=== PATIENT | male | born 1950 | race Caucasian/White ===

== ENCOUNTER 2016-05-19 18:29 | Emergency (ER) | payer BC, OTHER ==
[2016-05-19 18:50] VITALS: BP 153/85; PULSE 59; TEMP 98.1; BMI 25.1
--- NOTE | 2016-05-19 20:11 | PDOC ---
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 The patient reports a trip and fall landing on carpet on his head. The patient reports as a result injuring his head and now has a laceration on his head. Denies any LOC. He ranks his pain a 2/10 in pain intensity. He denies chest pain and shortness of breath. He denies fever, chills, headache and dizziness. He denies nausea, vomit, diarrhea and constipation. He denies dysuria, frequency, urgency and hematuria. Allergies: NKA Surgical history: Bilateral TKR Social History: denies tobacco, EtOH, and drug use. <Juan Jose Roy - Last Filed: 05/19/16 20:11> <Marilu Stockton - Last Filed: 05/20/16 02:02> - General Chief Complaint: Laceration Stated Complaint: FALL Time Seen by Provider: 05/19/16 19:13 Past History <Juan Jose Roy - Last Filed: 05/19/16 20:11> - Past Medical History Other medical history: MS / FACTOR 5 - Psycho/Social/Smoking Cessation Hx Anxiety: No Suicidal Ideation: No Smoking History: Never smoked Information on smoking cessation initiated: No Drug/Substance Use Hx: No Substance Use Type: None <Marilu Stockton - Last Filed: 05/20/16 02:02> - Past Medical History Allergies/Adverse Reactions: Allergies Allergy/AdvReac Type Severity Reaction Status Date / Time No Known Allergies Allergy Unverified 05/19/16 18:32 Home Medications: Ambulatory Orders Dalfampridine [Ampyra] 10 mg PO BID 03/18/14 Interferon Beta-1A [Avonex] 30 mcg IM WEEKLY 03/18/14 Review of Systems - Review of Systems All Other Systems: Reviewed and Negative <Juan Jose Roy - Last Filed: 05/19/16 20:11> *Physical Exam - Vital Signs Last Vital Signs Temp Pulse Resp BP Pulse Ox 98.1 F 59 L 16 153/85 16 L 05/19/16 18:45 05/19/16 18:45 05/19/16 18:45 05/19/16 18:45 05/19/16 18:45 - Physical Exam Comments: 05/19/16 20:11 GENERAL: The patient is awake, alert, and fully oriented, in no acute distress. HEAD: 1.5 cm full thickness laceration of the lateral aspect of the right eyebrow. Minimal tenderness and abrasion of the right zygoma. No deformity and no ecchymosis. EYES: Pupils equal, round and reactive to light, extraocular movements intact, sclera anicteric, conjunctiva clear with no pallor. ENT: Ears normal, nares patent, oropharynx clear without exudates. Moist mucous membranes. NECK: Normal range of motion, supple without lymphadenopathy, JVD, or masses. LUNGS: Breath sounds equal, clear to auscultation bilaterally. No wheeze/ crackles. HEART: Regular rate and rhythm, normal S1 and S2 without murmur or rub. ABDOMEN: Soft/nontender/nondistended. BS wnl. No guarding or rebound. No palpable masses. No hepatosplenomegaly. EXTREMITIES: Normal range of motion, no edema. No clubbing or cyanosis. No cords , erythema, or tenderness. NEUROLOGICAL: Cranial nerves II through XII grossly intact. Normal speech, normal gait. PSYCH: Normal mood, normal affect. SKIN: Warm, Dry, normal turgor, no rashes or lesions noted. <Juan Jose Roy - Last Filed: 05/19/16 20:11> - Vital Signs Last Vital Signs Temp Pulse Resp BP Pulse Ox 98.1 F 59 L 16 153/85 16 L 05/19/16 18:45 05/19/16 18:45 05/19/16 18:45 05/19/16 18:45 05/19/16 18:45 <Marilu Stockton - Last Filed: 05/20/16 02:02> Procedures - Laceration/Wound Repair Right Lateral Eye Wound Length: to 2.5 cm Wound Explored: clean Wound's Depth, Shape: irregular Irrigated w/ Saline: Yes Betadine Prep: No (Hibiclens/ethanol) Anesthesia: 1% Lidocaine Amount of Anesthetic (ccs): 1 Wound Repaired With: Sutures Suture Size/Type: 4:0 Number of Sutures: 3 Layer Closure: No Sterile Dressing Applied: No Splint Applied: No Progress: 1.5 cm full-thickness, irregular laceration of the right lateral eyebrow cleansed using Hibiclens/ethanol and sterilely draped. One mL of 1% lidocaine infiltrated into the wound for local anesthesia. Wound irrigated with 50 mL of sterile normal saline. No evidence of foreign body noted in wound. Wound closed with 3 interrupted Sutures of 4-0 nylon. Bacitracin applied to surface of the sutured wound. Bacitracin ointment also applied to abrasions and superficial laceration of the right zygoma The patient tolerated procedure well <Marilu Stockton - Last Filed: 05/20/16 02:02> ED Treatment Course - RADIOLOGY Radiograph Interpretation: 05/19/16 20:[address] WITHOUT CONTRAST impressions reported by : No evidence of acute intracranial pathology. <Juan Jose Roy - Last Filed: 05/19/16 20:11> - RADIOLOGY Radiology Studies Ordered: Category Date Time Status HEAD CT WITHOUT CONTRAST [CT] Stat CT Scan 05/19/16 18:51 Completed <Marilu Stockton - Last Filed: 05/20/16 02:02> Progress Note - Progress Note Progress Note: Documentation has been prepared under my direction and personally reviewed by me in its entirety. I attest that this documented accurately reflects all work, treatment, procedures and medical decision making performed by me. <Marilu Stockton - Last Filed: 05/20/16 02:02> Medical Decision Making - Medical Decision Making As noted above, this 66-year-old man with a history of multiple sclerosis presents with mechanical fall that occurred in his home just prior to presentation. Patient stated that ambulation is poor secondary to the EMS and he tripped as he was walking inside his home. He struck the right upper portion of his face, sustaining a laceration of the right eyebrow and contusion of his right cheekbone.. Exam reveals no evidence of focal neurologic deficits or other acute abnormalities. Because patient is taking anticoagulation medications, noncontrast head CT was performed to evaluate for intracranial pathology. <Marilu Stockton - Last Filed: 05/20/16 02:02> *DC/Admit/Observation/Transfer - Attestations Scribe Attestion: 05/19/16 20:11 Documentation prepared by Juan Jose Roy, acting as medical library assistant for Marilu Stockton MD. <Juan Jose Roy - Last Filed: 05/19/16 20:11> <Marilu Stockton - Last Filed: 05/20/16 02:02> Diagnosis at time of Disposition: Laceration of eyebrow Qualifiers: Encounter type: initial encounter Laterality: right Qualified Code(s): S01.111A - Laceration without foreign body of right eyelid and periocular area, initial encounter Facial abrasion Qualifiers: Encounter type: initial encounter Qualified Code(s): S00.81XA - Abrasion of other part of head, initial encounter Closed head injury Qualifiers: Encounter type: initial encounter Qualified Code(s): S09.90XA - Unspecified injury of head, initial encounter - Discharge Dispostion Disposition: HOME Condition at time of disposition: Stable - Patient Instructions Printed Discharge Instructions: DI for Closed Head Injury, How to Care for a Laceration After Repair Additional Instructions: Keep head elevated on extra pillow tonight Bacitracin/Neosporin to abrasion/laceration twice daily until sutures removed Tylenol as needed for pain Return if you have severe headache or experience vomiting/lightheadedness Keep stitched area as dry as possible for 2 days, then can wet briefly Sutures should be removed on Monday, May 25
== END 2016-05-19 20:17 | disposition home or self-care (01) ==
LOC: FER 18:29
PROC: 0HQ1XZZ Repair Face Skin, External Approach (ICD-10-PCS; principal; 2016-05-19)
DX: S01.111A Laceration without foreign body of right eyelid and periocular area, initial encounter (principal); S00.211A Abrasion of right eyelid and periocular area, initial encounter; S09.90XA Unspecified injury of head, initial encounter; W18.39XA Other fall on same level, initial encounter; Y93.9 Activity, unspecified; Y92.009 Unspecified place in unspecified non-institutional (private) residence as the place of occurrence of the external cause; G35 Multiple sclerosis; I10 Essential (primary) hypertension; D68.51 Activated protein C resistance; Z79.01 Long term (current) use of anticoagulants
CPT/HCPCS: 70450-TC; 99282-25

== ENCOUNTER 2016-05-28 12:42 | Emergency (ER) | payer BC, OTHER ==
--- NOTE | 2016-05-28 12:50 | PDOC ---
History of Present Illness - General Chief Complaint: Suture/Staple Removal(Here) Stated Complaint: SUTURE REMOVAL Time Seen by Provider: 05/28/16 12:46 History Source: Patient Exam Limitations: No Limitations - History of Present Illness Initial Comments: 05/28/16 12:46 The patient is a 66 year old male who presents for suture removal. Sutures located above left eye. No visual complaints. No headaches, focal weakness or paresthesias, nausea/vomiting. He states that the wound is healing well, is not painful or tender. He denies fever, rash, discharge, re-injury. 05/28/16 13:13 Past History - Past Medical History Allergies/Adverse Reactions: Allergies Allergy/AdvReac Type Severity Reaction Status Date / Time No Known Allergies Allergy Verified 05/25/16 13:18 Home Medications: Ambulatory Orders Dalfampridine [Ampyra] 10 mg PO BID 03/18/14 Interferon Beta-1A [Avonex] 30 mcg IM WEEKLY 03/18/14 - Psycho/Social/Smoking Cessation Hx Anxiety: No Suicidal Ideation: No Smoking History: Never smoked Drug/Substance Use Hx: No Substance Use Type: None Review of Systems - Review of Systems Comments:: 05/28/16 12:47 CONSTITUTIONAL: Absent: fever, chills, fatigue MUSKULOSKELETAL: Absent: back pain, arthralgia, myalgia SKIN: Present: well healing laceration Absent: rash NEURO: Absent: headache, dizziness, focal weakness/paresthesias *Physical Exam - Physical Exam Comments: 05/28/16 12:48 GENERAL: Well-appearing, well-nourished. No apparent distress. CARDIOVASCULAR: Normal S1, S2. Regular rate and rhythm. EXTREMITIES: Normal ROM in all four extremities. No gross deformities. SKIN: Well healed laceration, without tenderness, discharge. Edges well approximated. Warm, dry. No rash NEUROLOGICAL: No focal neurological deficits. Medical Decision Making - Medical Decision Making 05/28/16 12:49 The patient is well appearing and no acute distress Would well healed Sutures removed *DC/Admit/Observation/Transfer Diagnosis at time of Disposition: Visit for suture removal - Discharge Dispostion Condition at time of disposition: Good - Referrals Referrals: Tod Ghotra MD [Primary Care Provider] - - Patient Instructions Printed Discharge Instructions: DI for Suture Removal Additional Instructions: Return to the emergency department immediately with ANY new, persistent or worsening symptoms. You MUST call and follow up with your doctor tomorrow. Please make sure your doctor reviews the results of your emergency department evaluation.
[2016-05-28 12:55] VITALS: BP 136/79; PULSE 70; TEMP 98.2; BMI 25.0
== END 2016-05-28 12:57 | disposition home or self-care (01) ==
LOC: FER 12:42 → SUPCPDRO 12:42 → FER 12:57
DX: Z48.02 Encounter for removal of sutures (principal)
CPT/HCPCS: 99281-25

== ENCOUNTER 2017-10-18 11:28 | Emergency (ER) | payer OTHER ==
--- NOTE | 2017-10-18 11:40 | PDOC ---
History of Present Illness - General Chief Complaint: Pain Stated Complaint: LEFT HIP INJURY Time Seen by Provider: 10/18/17 11:40 - History of Present Illness Initial Comments: 10/18/17 11:56 Plan: Left hip pain History of present illness: Patient complains of pain over the greater trochanter of the left hip after an injury yesterday. He was walking down stairs , lost his balance, and shifted his entire weight onto his left leg to maintain his balance. He did not fall. He has pain and stiffness today with increased difficulty ambulating. He has had numerous falls due to knee problems and knee surgery, though he did not fall this time. Review of systems: As noted above, denies fall, pain or injury to the head neck chest abdomen or spine. Denies injuries to the extremities. Denies distal numbness tingling pain or weakness since the injury. However, requires the assistance of a walker since the injury. 10/18/17 13:26 Past medical history: Numerous surgeries including knee replacements contributing to gait instability. Otherwise noncontributory Social/family history reviewed and noncontributory to this injury Physical exam: Alert, no acute distress at rest, no pain at rest. Pain with weightbearing left lateral hip. However adequately ambulating with the aid of a walker Afebrile, vital signs normal LS spine, pelvis, and left hip: No deformity, swelling, bruising or ecchymosis, or warmth. No spine tenderness. No pelvic tenderness. Hip range of motion is intact with internal and external rotation, no aggravation of pain. Abrasions without sign of infection on both legs, results of a prior fall. Pulses full. No distal sensory or motor deficits. Impression: Since there was no fall, primarily a jarring injury, probably muscle strain, rule out fracture Plan: X-ray and further orthopedic management depending on results Past History - Past Medical History Allergies/Adverse Reactions: Allergies Allergy/AdvReac Type Severity Reaction Status Date / Time No Known Allergies Allergy Verified 10/18/17 11:38 Home Medications: Ambulatory Orders Dalfampridine [Ampyra] 10 mg PO BID 03/18/14 Interferon Beta-1A [Avonex] 30 mcg IM WEEKLY 03/18/14 Tamsulosin HCl 0.4 mg PO DAILY 10/18/17 - Suicide/Smoking/Psychosocial Hx Smoking History: Never smoked Hx Alcohol Use: No Drug/Substance Use Hx: No Substance Use Type: None Medical Decision Making - Medical Decision Making 10/18/17 13:29 X-ray is negative. No obvious fracture is noted to the pelvis or hip. Since this is a recent injury, rest and medication as needed. Consider further imaging if pain persists. This was discussed with the patient and his family and they will follow up as directed. Fully ambulatory with walker upon discharge in no severe pain to follow-up as directed *DC/Admit/Observation/Transfer Diagnosis at time of Disposition: Hip sprain Qualifiers: Encounter type: initial encounter Laterality: left Qualified Code(s): S73.102A - Unspecified sprain of left hip, initial encounter - Discharge Dispostion Disposition: HOME Condition at time of disposition: Stable Decision to Admit order: No - Referrals Referrals: Raman Murillo MD [Staff Physician] - 1 week - Patient Instructions Printed Discharge Instructions: Help for Hip Pain Additional Instructions: Rest, ice or heat, pain medication as needed. If pain persists. 5 days, see primary physician or natural resources specialist for further evaluation and treatment. X-ray today shows no sign of fracture, however, it is possible to have a minor injury that does not show up on x-ray and if pain persists further evaluation will be needed. - Post Discharge Activity
[2017-10-18 12:02] VITALS: BP 144/78; PULSE 57; TEMP 97.7; BMI 25.8
== END 2017-10-18 13:18 | disposition home or self-care (01) ==
LOC: FER 11:28
DX: S73.102A Unspecified sprain of left hip, initial encounter (principal); X58.XXXA Exposure to other specified factors, initial encounter; Y93.89 Activity, other specified; Y92.9 Unspecified place or not applicable
CPT/HCPCS: 73523-TC-FY; 99282-25

== ENCOUNTER 2018-07-28 23:43 | Emergency (ER) | payer OTHER ==
[2018-07-28 23:55] VITALS: BP 152/84; PULSE 61; TEMP 97.8; BMI 25.8
--- NOTE | 2018-07-28 23:56 | PDOC ---
History of Present Illness - General Chief Complaint: Injury Stated Complaint: FALL Time Seen by Provider: 07/28/18 23:47 History Source: Patient Exam Limitations: No Limitations - History of Present Illness Initial Comments: 07/28/18 23:54 This is a 68-year-old male brought in by his children for evaluation status post fall. Patient has a history significant for multiple sclerosis so has difficulty ambulating and with his gait. Patient does use a walker for ambulation. Patient was outside this evening when he lost his balance and fell landing on his left side. Patient is complaining of some pain in the area of his left side anteriorly. Patient said it hurts when he takes a deep breath. 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 Patient otherwise denies any neck pain, low back pain pain in the area of his lumbar or thoracic spine, extremity pain or any other injury. Patient said he did not hit his head or passed out. Allergies: None Past Medical History: none Social history: Lives with family. No smoking. No alcohol. No illicit drugs. Surgical history: None General: No fevers or chills, no weakness, no weight loss HEENT: No change in vision. No sore throat,. No ear pain CardioVascular: no chest discomfort. No shortness of breath Respiratory:No cough, or wheezing. Gastrointestinal: no nausea, vomiting, diarrhea or constipation, No rectal bleeding Genitourinary: No dysuria, hematuria, or frequency Musculoskeletal: No joint or muscle pain or swelling Neurologic: No headache, vertigo, dizziness or loss of consciousness Psychiatric: nor depression Skin: No rashes or easy bruising Endocrine: no increased thirst or abnormal weight change Allergic: no skin or latex allergy All other systems reviewed and normal Exam: General: Well-nourished well-developed individual, no acute distress HEENT: Throat: Normal, tonsils normal, no erythema or exudate Neck: Supple, no meningeal signs, no lymphadenopathy Eyes::Pupils equal reactive and round, extraocular motion intact Chest: Nontender to palpation, there is no bony tenderness other ribs anteriorly or posteriorly. There is no visible ecchymosis or contusions. Cardiac: S1-S2 normal, regular rate and rhythm, no murmurs rubs or gallops Respiratory: Lungs clear to auscultation bilateral, with good air entry Abdomen: Soft, nondistended, normal bowel sounds, there is no tenderness on palpation diffusely Extremities: Warm, dry, no cyanosis, clubbing, or edema Skin: No rashes Neuro: Alert and oriented x3, CN II - XII intact, nonfocal exam is intact. Psych: Normal mood and affect Assessment and plan: This is a 68-year-old male comes in complaining of status post fall. Patient does appear to have some sealer type discomfort however there is no bony tenderness on palpation of his ribs and extremities. There is no evidence of head trauma. Patient discharged home without any further workup. 07/29/18 00:01 Past History - Past Medical History Allergies/Adverse Reactions: Allergies Allergy/AdvReac Type Severity Reaction Status Date / Time No Known Allergies Allergy Verified 10/18/17 11:38 Home Medications: Ambulatory Orders Dalfampridine [Ampyra] 10 mg PO BID 03/18/14 Interferon Beta-1A [Avonex] 30 mcg IM WEEKLY 03/18/14 Tamsulosin HCl 0.4 mg PO DAILY 10/18/17 COPD: No - Suicide/Smoking/Psychosocial Hx Smoking History: Never smoked Have you smoked in the past 12 months: Yes If you are a former smoker, when did you quit?: 10 YEARS Hx Alcohol Use: No Drug/Substance Use Hx: No Substance Use Type: None *DC/Admit/Observation/Transfer Diagnosis at time of Disposition: Fall Qualifiers: Encounter type: initial encounter Qualified Code(s): W19.XXXA - Unspecified fall, initial encounter - Discharge Dispostion Disposition: HOME Condition at time of disposition: Stable Decision to Admit order: No - Referrals - Patient Instructions Additional Instructions: U can take Tylenol as needed for the pain. Return to the emergency department immediately with ANY new, persistent or worsening symptoms. Continue any medications as previously prescribed by your physician. You should follow up with your primary doctor as soon as possible regarding today's emergency department visit. . Please make sure your doctor reviews the results of your emergency evaluation. Thank you for coming to the Emergency Department today for your care. It was a pleasure to see you today. Please note that your evaluation is INCOMPLETE until you follow-up with your doctor. - Post Discharge Activity
== END 2018-07-29 00:30 | disposition home or self-care (01) ==
LOC: FER 23:43
DX: Z04.3 Encounter for examination and observation following other accident (principal); R07.89 Other chest pain; G35 Multiple sclerosis; Z99.89 Dependence on other enabling machines and devices
CPT/HCPCS: 99281-25

== ENCOUNTER 2020-06-11 19:43 | Inpatient (IN) | payer OTHER ==
[2020-06-11 19:55] VITALS: BMI 23.6
[2020-06-11] MEDS ORDERED: ACETAMINOPHEN INJECTION 100 ML IVPB ONE (20:22)
[2020-06-11] MEDS ORDERED: PIPERACILLIN/TAZOB 4.5 GM 4.5 GM in DEXTROSE 5%-WATER 100 ML IVPB ONE (20:26)
[2020-06-11] MEDS ORDERED: ACETAMINOPHEN 1000 MG/100 ML VIAL (NON FORMULARY) IVPB ONE (20:26)
[2020-06-11] MEDS ORDERED: PIPERACILLIN/TAZOB 4.5 GM 4.5 GM/100 ML BAG IVPB ONE (20:32)
[2020-06-11 20:53] LABS: BASO % 0.1 % (0-2.0); HEMATOCRIT 36.9 % (35.4-49); HEMOGLOBIN 12.4 GM/dL (11.7-16.9); LYMPH % 2.3 % (8-40); MCH 29.9 pg (25.7-33.7); MCHC 33.7 g/dl (32.0-35.9); MEAN CELL VOLUME 88.9 fl (80-96); MEAN PLT VOLUME 6.5 fl (7.5-11.1); MONO % 2.4 % (3.8-10.2); NEUT % 95.2 % (42.8-82.8); PLATELET COUNT 211 K/MM3 (134-434); RBC 4.15 M/mm3 (4.00-5.60); RDW 13.5 % (11.9-15.9); VENOUS BASE EXCESS 2.8 mmol/L (-2-2); VENOUS O2 SATURATION 37.8 % (70-80); VENOUS PCO2 49.9 mmHg (38-52); VENOUS PH 7.38 (7.310-7.410); WHITE BLOOD COUNT 6.9 K/mm3 (4.0-10.0)
[2020-06-11] MEDS ORDERED: LACTATED RINGERS SOLUTION 1000 ML INFUS.BAG IV ONE (20:58)
[2020-06-11] MEDS ORDERED: VANCOMYCIN 1 GM in D5W (PRE-DOCKED) 1,000 MG/250 ML IVPB ONE (20:58)
[2020-06-11] MEDS ORDERED: LORazepam 2 MG/ML SDV VIAL IVPUSH ONE ×2 (21:06→22:00)
[2020-06-11] MEDS ORDERED: LORazepam 2 MG/ML SDV VIAL ONE ×2 (21:08→21:29)
[2020-06-11 21:15] LABS: POTASSIUM 4.1 mmol/L (3.5-5.1)
[2020-06-11 21:16] LABS: CALCIUM 8.7 mg/dL (8.5-10.1)
[2020-06-11 21:17] LABS: ALBUMIN 3.3 g/dl (3.4-5.0); BLOOD UREA NITROGEN 19.6 mg/dL (7-18)
[2020-06-11 21:18] LABS: PROTHROMBIN TIME (PATIENT) 62.1 SEC (9.7-13.0)
[2020-06-11 21:20] LABS: CREATININE 0.8 mg/dL (0.55-1.3)
[2020-06-11 21:21] LABS: ACTIVATED PTT 43.4 SECONDS (25.2-36.5)
[2020-06-11 21:22] LABS: BILIRUBIN,TOTAL 0.7 mg/dL (0.2-1); TOT PROT 6.5 g/dl (6.4-8.2)
[2020-06-11 21:26] LABS: INR 5.3 (0.83-1.09)
[2020-06-11] MEDS ORDERED: METOCLOPRAMIDE HCL INJECTION 10 MG/2 ML VIAL ONE (21:29)
[2020-06-11 21:35] LABS: EPI CELLS 5 /uL (0-25.1); HYALINE CASTS 0 /uL (0-3.1); URINE APPEARANCE CLOUDY; URINE BACTERIA 23 /uL (0-1359); URINE BILIRUBIN NEGATIVE (NEGATIVE); URINE COLOR YELLOW; URINE GLUCOSE (UA) NEGATIVE (NEGATIVE); URINE KETONE TRACE (NEGATIVE); URINE LEUK ESTERASE NEGATIVE (NEGATIVE); URINE NITRITE NEGATIVE (NEGATIVE); URINE PROTEIN 2+ (NEGATIVE); URINE RBC 4596 /uL (0-23.9); URINE UROBILINOGEN 0.2 mg/dL (0.2-1.0); URINE WBC 17 /uL (0-25.8)
[2020-06-11] MEDS ORDERED: METOCLOPRAMIDE HCL INJECTION 10 MG/2 ML VIAL IVPUSH ONE (22:00)
[2020-06-11] MEDS ORDERED: VANCOMYCIN 1 GRAM (PRE-DOCKED) 1,000 MG/250 ML BAG IVPB ONE (22:00)
[2020-06-11 22:06] LABS: ANISOCYTOSIS 0; MACROCYTOSIS 0; PLATELET ESTIMATE NORMAL
[2020-06-11] MEDS ORDERED: SODIUM CHLORIDE 0.9% 500 ML INFUS.BAG IV ONE (23:16)
[2020-06-12] MEDS ORDERED: PIPERACILLIN/TAZOB 3.375 GM 3.375 GM/50 ML BAG IVPB ONE (03:06)
[2020-06-12] MEDS ORDERED: VANCOMYCIN 1,000 MG in DEXTROSE 5%-WATER - 250 ML IVPB SCH ×2 (03:15→10:00)
[2020-06-12] MEDS: SODIUM CHLORIDE 1,000 ML IV SCH (03:28)
[2020-06-12] MEDS: PIPERACILLIN/TAZOB 3.375 GM 3.375 GM in DEXTROSE 5%-WATER - 50 ML IVPB SCH ×2 (03:28→12:56)
[2020-06-12 05:02] LABS: EPI CELLS 11 /uL (0-25.1); HYALINE CASTS 1 /uL (0-3.1); PH,URINE 6.5 (5.0-8.0); URINE APPEARANCE CLEAR; URINE BACTERIA 31 /uL (0-1359); URINE BILIRUBIN NEGATIVE (NEGATIVE); URINE COLOR YELLOW; URINE GLUCOSE (UA) NEGATIVE (NEGATIVE); URINE KETONE NEGATIVE (NEGATIVE); URINE LEUK ESTERASE NEGATIVE (NEGATIVE); URINE NITRITE NEGATIVE (NEGATIVE); URINE PROTEIN NEGATIVE (NEGATIVE); URINE RBC 88 /uL (0-23.9); URINE UROBILINOGEN 0.2 mg/dL (0.2-1.0); URINE WBC 7 /uL (0-25.8)
[2020-06-12 06:42] LABS: POTASSIUM 3.9 mmol/L (3.5-5.1)
[2020-06-12 06:44] LABS: BASO % 0.1 % (0-2.0); HEMATOCRIT 35.3 % (35.4-49); HEMOGLOBIN 12.1 GM/dL (11.7-16.9); MCH 30.1 pg (25.7-33.7); MCHC 34.2 g/dl (32.0-35.9); MEAN CELL VOLUME 88.1 fl (80-96); MEAN PLT VOLUME 6.9 fl (7.5-11.1); MONO % 6.2 % (3.8-10.2); NEUT % 90.7 % (42.8-82.8); PLATELET COUNT 206 K/MM3 (134-434); RDW 13.7 % (11.9-15.9); WHITE BLOOD COUNT 10.6 K/mm3 (4.0-10.0)
[2020-06-12 06:47] LABS: PROTHROMBIN TIME (PATIENT) 78.9 SEC (9.7-13.0)
[2020-06-12 06:49] LABS: CALCIUM 8.4 mg/dL (8.5-10.1)
[2020-06-12 06:50] LABS: ALBUMIN 2.8 g/dl (3.4-5.0); BLOOD UREA NITROGEN 15.6 mg/dL (7-18); MAGNESIUM 1.6 mg/dL (1.8-2.4)
[2020-06-12 06:53] LABS: CREATININE 0.5 mg/dL (0.55-1.3); PHOSPHOROUS 2.8 mg/dL (2.5-4.9)
[2020-06-12 06:54] LABS: BILIRUBIN,TOTAL 0.9 mg/dL (0.2-1); TOT PROT 5.6 g/dl (6.4-8.2)
[2020-06-12 08:02] LABS: INR 6.78 (0.83-1.09)
[2020-06-12] MEDS ORDERED: PIPERACILLIN/TAZOB 3.375 GM 3.375 GM in DEXTROSE 5%-WATER - 50 ML IVPB SCH (10:00)
[2020-06-12] MEDS ORDERED: VANCOMYCIN 1 GRAM (PRE-DOCKED) 1,000 MG/250 ML BAG IVPB SCH (10:00)
[2020-06-12] MEDS ORDERED: PT OWN MED DRAWER 7, Y5N ONE (10:36)
[2020-06-12] MEDS ORDERED: PIPERACILLIN/TAZOBACTAM 3.375 GM VIAL IVPB ONE ×2 (10:37)
[2020-06-12] MEDS ORDERED: DEXTROSE 5%-WATER - 50 ML IVPB ONE ×2 (10:37→10:38)
[2020-06-12] MEDS: BACLOFEN 10 MG TABLET (FP) PO SCH ×4 (12:56→21:58)
[2020-06-12] MEDS: CITALOPRAM HYDROBROMIDE 20 MG TABLET PO SCH (12:57)
[2020-06-12] MEDS: TAMSULOSIN HCL 0.4 MG CAP PO SCH (12:59)
[2020-06-12] MEDS: NEBIVOLOL 10 MG TABLET (FP) PO SCH (12:59)
[2020-06-12] MEDS ORDERED: PIPERACILLIN/TAZOBACTAM 4.5 GM VIAL IVPB ONE (17:05)
[2020-06-12] MEDS ORDERED: DEXTROSE 5%-WATER 100 ML IVPB ONE (17:05)
[2020-06-12] MEDS: PIPERACILLIN/TAZOB 4.5 GM 4.5 GM in DEXTROSE 5%-WATER 100 ML IVPB SCH (17:24)
[2020-06-12 21:58] LABS: PROTHROMBIN TIME (PATIENT) 74.1 SEC (9.7-13.0)
[2020-06-12] MEDS: ACETAMINOPHEN 325 MG TABLET (FP) PO PRN (21:58)
[2020-06-12 22:34] LABS: INR 6.47 (0.83-1.09)
[2020-06-13] MEDS ORDERED: PIPERACILLIN/TAZOBACTAM 4.5 GM VIAL IVPB ONE ×3 (01:27→18:22)
[2020-06-13] MEDS ORDERED: DEXTROSE 5%-WATER 100 ML IVPB ONE ×3 (01:28→18:23)
[2020-06-13] MEDS: PIPERACILLIN/TAZOB 4.5 GM 4.5 GM in DEXTROSE 5%-WATER 100 ML IVPB SCH ×3 (02:45→18:56)
[2020-06-13] MEDS: oxyCODONE HCL 5 MG TABLET PO PRN ×3 (09:32→23:39)
[2020-06-13] MEDS: TAMSULOSIN HCL 0.4 MG CAP PO SCH (09:33)
[2020-06-13] MEDS: CITALOPRAM HYDROBROMIDE 20 MG TABLET PO SCH (09:33)
[2020-06-13] MEDS: NEBIVOLOL 10 MG TABLET (FP) PO SCH (09:34)
[2020-06-13] MEDS: BACLOFEN 10 MG TABLET (FP) PO SCH ×4 (09:34→23:38)
[2020-06-13] MEDS ORDERED: PIPERACILLIN/TAZOB 3.375 GM 3.375 GM in DEXTROSE 5%-WATER - 50 ML IVPB SCH (10:00)
[2020-06-13] MEDS: SODIUM CHLORIDE 1,000 ML IV SCH (10:34)
[2020-06-13 13:34] LABS: INR 3.08 (0.83-1.09); PROTHROMBIN TIME (PATIENT) 36.7 SEC (9.7-13.0)
[2020-06-13] MEDS: ACETAMINOPHEN 325 MG TABLET (FP) PO PRN (23:38)
[2020-06-14] MEDS ORDERED: DEXTROSE 5%-WATER 100 ML IVPB ONE ×3 (04:01→17:07)
[2020-06-14] MEDS ORDERED: PIPERACILLIN/TAZOBACTAM 4.5 GM VIAL IVPB ONE ×3 (04:01→17:07)
[2020-06-14] MEDS: PIPERACILLIN/TAZOB 4.5 GM 4.5 GM in DEXTROSE 5%-WATER 100 ML IVPB SCH ×3 (04:12→17:26)
[2020-06-14 07:35] LABS: INR 2.26 (0.83-1.09); PROTHROMBIN TIME (PATIENT) 27.1 SEC (9.7-13.0)
[2020-06-14] MEDS: TAMSULOSIN HCL 0.4 MG CAP PO SCH (08:57)
[2020-06-14] MEDS: oxyCODONE HCL 5 MG TABLET PO PRN ×2 (11:55→21:37)
[2020-06-14] MEDS: BACLOFEN 10 MG TABLET (FP) PO SCH ×4 (11:57→21:36)
[2020-06-14] MEDS: CITALOPRAM HYDROBROMIDE 20 MG TABLET PO SCH (11:57)
[2020-06-14] MEDS: NEBIVOLOL 10 MG TABLET (FP) PO SCH (11:57)
[2020-06-14] MEDS: SODIUM CHLORIDE 1,000 ML IV SCH ×2 (11:58→15:15)
[2020-06-14] MEDS: WARFARIN NA 5 MG TABLET PO SCH (17:26)
[2020-06-15] MEDS ORDERED: DEXTROSE 5%-WATER 100 ML IVPB ONE ×3 (01:27→17:17)
[2020-06-15] MEDS ORDERED: PIPERACILLIN/TAZOBACTAM 4.5 GM VIAL IVPB ONE ×3 (01:27→17:17)
[2020-06-15] MEDS: PIPERACILLIN/TAZOB 4.5 GM 4.5 GM in DEXTROSE 5%-WATER 100 ML IVPB SCH ×3 (01:33→17:44)
[2020-06-15 07:57] LABS: BASO % 0.3 % (0-2.0); EOS % 3.4 % (0-4.5); HEMOGLOBIN 12.2 GM/dL (11.7-16.9); LYMPH % 11.7 % (8-40); MCH 30.2 pg (25.7-33.7); MCHC 33.9 g/dl (32.0-35.9); MEAN CELL VOLUME 89.1 fl (80-96); MEAN PLT VOLUME 6.8 fl (7.5-11.1); MONO % 9.2 % (3.8-10.2); NEUT % 75.4 % (42.8-82.8); PLATELET COUNT 243 K/MM3 (134-434); RBC 4.04 M/mm3 (4.00-5.60); RDW 13.4 % (11.9-15.9); WHITE BLOOD COUNT 7.1 K/mm3 (4.0-10.0)
[2020-06-15 08:03] LABS: INR 2.13 (0.83-1.09); PROTHROMBIN TIME (PATIENT) 25.6 SEC (9.7-13.0)
[2020-06-15] MEDS ORDERED: PT OWN MED DRAWER 7, Y5N ONE (10:56)
[2020-06-15] MEDS: TAMSULOSIN HCL 0.4 MG CAP PO SCH (11:01)
[2020-06-15] MEDS: NEBIVOLOL 10 MG TABLET (FP) PO SCH (11:01)
[2020-06-15] MEDS: CITALOPRAM HYDROBROMIDE 20 MG TABLET PO SCH (11:01)
[2020-06-15] MEDS: BACLOFEN 10 MG TABLET (FP) PO SCH ×4 (11:02→22:16)
[2020-06-15] MEDS: ACETAMINOPHEN 325 MG TABLET (FP) PO PRN (11:02)
[2020-06-15] MEDS: oxyCODONE HCL 5 MG TABLET PO PRN ×2 (11:03→22:16)
[2020-06-15] MEDS: SODIUM CHLORIDE 1,000 ML IV SCH (15:20)
[2020-06-15] MEDS: WARFARIN NA 5 MG TABLET PO SCH (17:45)
[2020-06-16] MEDS ORDERED: DEXTROSE 5%-WATER 100 ML IVPB ONE ×3 (01:16→17:29)
[2020-06-16] MEDS ORDERED: PIPERACILLIN/TAZOBACTAM 4.5 GM VIAL IVPB ONE ×3 (01:16→17:29)
[2020-06-16] MEDS: PIPERACILLIN/TAZOB 4.5 GM 4.5 GM in DEXTROSE 5%-WATER 100 ML IVPB SCH ×3 (01:39→17:43)
[2020-06-16] MEDS ORDERED: PT OWN MED DRAWER 7, Y5N ONE ×2 (09:19→10:04)
[2020-06-16 09:25] LABS: BASO % 0.4 % (0-2.0); EOS % 2.5 % (0-4.5); HEMATOCRIT 37.2 % (35.4-49); HEMOGLOBIN 12.8 GM/dL (11.7-16.9); LYMPH % 8.4 % (8-40); MCH 29.9 pg (25.7-33.7); MCHC 34.3 g/dl (32.0-35.9); MEAN CELL VOLUME 87.2 fl (80-96); MEAN PLT VOLUME 6.6 fl (7.5-11.1); MONO % 9.3 % (3.8-10.2); NEUT % 79.4 % (42.8-82.8); PLATELET COUNT 263 K/MM3 (134-434); RBC 4.26 M/mm3 (4.00-5.60); RDW 13.2 % (11.9-15.9); WHITE BLOOD COUNT 8.6 K/mm3 (4.0-10.0)
[2020-06-16 09:29] LABS: INR 2.44 (0.83-1.09); PROTHROMBIN TIME (PATIENT) 28.8 SEC (9.7-13.0)
[2020-06-16] MEDS: NEBIVOLOL 10 MG TABLET (FP) PO SCH (09:29)
[2020-06-16] MEDS: TAMSULOSIN HCL 0.4 MG CAP PO SCH (09:29)
[2020-06-16] MEDS: BACLOFEN 10 MG TABLET (FP) PO SCH ×4 (09:30→21:00)
[2020-06-16] MEDS: CITALOPRAM HYDROBROMIDE 20 MG TABLET PO SCH (09:30)
[2020-06-16] MEDS: SODIUM CHLORIDE 1,000 ML IV SCH ×2 (09:30→14:31)
[2020-06-16 09:48] LABS: POTASSIUM 3.3 mmol/L (3.5-5.1)
[2020-06-16 10:00] LABS: ALBUMIN 2.4 g/dl (3.4-5.0)
[2020-06-16 10:03] LABS: BLOOD UREA NITROGEN 7.1 mg/dL (7-18); MAGNESIUM 1.7 mg/dL (1.8-2.4)
[2020-06-16 10:05] LABS: CALCIUM 8.3 mg/dL (8.5-10.1); CREATININE 0.4 mg/dL (0.55-1.3); PHOSPHOROUS 2.9 mg/dL (2.5-4.9)
[2020-06-16] MEDS ORDERED: POTASSIUM CHLORIDE TABS 20 MEQ TABLET.ER (FP) PO ONE (10:06)
[2020-06-16] MEDS ORDERED: MAGNESIUM SULF 50% (8.12 MEQ/2 ML-1 GM VIAL) IVPB ONE (10:06)
[2020-06-16 10:07] LABS: BILIRUBIN,TOTAL 0.6 mg/dL (0.2-1); TOT PROT 5.6 g/dl (6.4-8.2)
[2020-06-16] MEDS: LACTOBACILLUS ACIDOPHILUS 1 TABLET PO SCH ×2 (11:27→21:00)
[2020-06-16] MEDS ORDERED: MINERAL OIL/PET HY-PHL TOPICAL OINTMENT 454 GM JAR TP SCH (12:15)
[2020-06-16] MEDS ORDERED: AMMONIUM LACTATE 12% LOTION 225 GM BOTTLE TP PRN (12:56)
[2020-06-16] MEDS: WARFARIN NA 5 MG TABLET PO SCH (17:43)
[2020-06-16] MEDS: oxyCODONE HCL 5 MG TABLET PO PRN (20:54)
[2020-06-16] MEDS: MINERAL OIL/PET HY-PHL TOPICAL OINTMENT 454 GM JAR TP SCH (21:00)
[2020-06-17] MEDS ORDERED: PIPERACILLIN/TAZOBACTAM 4.5 GM VIAL IVPB ONE ×3 (01:31→17:06)
[2020-06-17] MEDS ORDERED: DEXTROSE 5%-WATER 100 ML IVPB ONE ×3 (01:31→17:06)
[2020-06-17] MEDS: PIPERACILLIN/TAZOB 4.5 GM 4.5 GM in DEXTROSE 5%-WATER 100 ML IVPB SCH ×3 (02:10→17:23)
[2020-06-17] MEDS ORDERED: PT OWN MED DRAWER 7, Y5N ONE ×2 (06:29→10:11)
[2020-06-17] MEDS: NEBIVOLOL 10 MG TABLET (FP) PO SCH ×2 (06:37→10:13)
[2020-06-17 08:21] LABS: BASO % 0.3 % (0-2.0); EOS % 2.5 % (0-4.5); HEMATOCRIT 36.5 % (35.4-49); HEMOGLOBIN 12.4 GM/dL (11.7-16.9); LYMPH % 9.5 % (8-40); MCHC 33.9 g/dl (32.0-35.9); MEAN CELL VOLUME 88.5 fl (80-96); MEAN PLT VOLUME 6.9 fl (7.5-11.1); MONO % 12.1 % (3.8-10.2); NEUT % 75.6 % (42.8-82.8); PLATELET COUNT 265 K/MM3 (134-434); RBC 4.12 M/mm3 (4.00-5.60); RDW 13.3 % (11.9-15.9); WHITE BLOOD COUNT 8.9 K/mm3 (4.0-10.0)
[2020-06-17 08:43] LABS: POTASSIUM 3.6 mmol/L (3.5-5.1)
[2020-06-17 08:49] LABS: ALBUMIN 2.5 g/dl (3.4-5.0); BLOOD UREA NITROGEN 6.2 mg/dL (7-18)
[2020-06-17 08:50] LABS: MAGNESIUM 1.9 mg/dL (1.8-2.4)
[2020-06-17 08:53] LABS: CREATININE 0.4 mg/dL (0.55-1.3); PHOSPHOROUS 2.7 mg/dL (2.5-4.9)
[2020-06-17 08:54] LABS: TOT PROT 5.7 g/dl (6.4-8.2)
[2020-06-17 10:02] LABS: INR 2.1 (0.83-1.09); PROTHROMBIN TIME (PATIENT) 25.3 SEC (9.7-13.0)
[2020-06-17] MEDS: LACTOBACILLUS ACIDOPHILUS 1 TABLET PO SCH ×2 (10:14→21:08)
[2020-06-17] MEDS: TAMSULOSIN HCL 0.4 MG CAP PO SCH (10:14)
[2020-06-17] MEDS: CITALOPRAM HYDROBROMIDE 20 MG TABLET PO SCH (10:14)
[2020-06-17] MEDS: CALCIUM ACETATE/AL SULFATE TOP 1.9 GM/PACKET PACKET TP SCH (10:14)
[2020-06-17] MEDS: BACLOFEN 10 MG TABLET (FP) PO SCH ×4 (10:14→21:08)
[2020-06-17] MEDS: MINERAL OIL/PET HY-PHL TOPICAL OINTMENT 454 GM JAR TP SCH ×2 (10:14→21:05)
[2020-06-17] MEDS: oxyCODONE HCL 5 MG TABLET PO PRN ×2 (10:22→21:06)
[2020-06-17] MEDS: SODIUM CHLORIDE 1,000 ML IV SCH (13:49)
[2020-06-17] MEDS: WARFARIN NA 5 MG TABLET PO SCH (17:23)
[2020-06-18] MEDS ORDERED: PIPERACILLIN/TAZOBACTAM 4.5 GM VIAL IVPB ONE ×3 (01:20→16:58)
[2020-06-18] MEDS ORDERED: DEXTROSE 5%-WATER 100 ML IVPB ONE ×3 (01:20→16:58)
[2020-06-18] MEDS: PIPERACILLIN/TAZOB 4.5 GM 4.5 GM in DEXTROSE 5%-WATER 100 ML IVPB SCH ×3 (02:50→17:30)
[2020-06-18] MEDS: oxyCODONE HCL 5 MG TABLET PO PRN ×2 (03:39→20:40)
[2020-06-18 08:34] LABS: HEMATOCRIT 37.6 % (35.4-49); HEMOGLOBIN 12.7 GM/dL (11.7-16.9); MCHC 33.7 g/dl (32.0-35.9); MEAN CELL VOLUME 89.1 fl (80-96); MEAN PLT VOLUME 6.7 fl (7.5-11.1); PLATELET COUNT 302 K/MM3 (134-434); RBC 4.22 M/mm3 (4.00-5.60); RDW 13.3 % (11.9-15.9)
[2020-06-18] MEDS ORDERED: PT OWN MED DRAWER 7, Y5N ONE ×3 (08:40→17:54)
[2020-06-18 08:47] LABS: INR 1.92 (0.83-1.09); PROTHROMBIN TIME (PATIENT) 22.8 SEC (9.7-13.0)
[2020-06-18 08:55] LABS: POTASSIUM 3.8 mmol/L (3.5-5.1)
[2020-06-18 09:00] LABS: BLOOD UREA NITROGEN 7.1 mg/dL (7-18); CALCIUM 8.4 mg/dL (8.5-10.1)
[2020-06-18 09:03] LABS: CREATININE 0.4 mg/dL (0.55-1.3)
[2020-06-18] MEDS: LACTOBACILLUS ACIDOPHILUS 1 TABLET PO SCH ×2 (09:49→21:17)
[2020-06-18] MEDS: TAMSULOSIN HCL 0.4 MG CAP PO SCH (09:49)
[2020-06-18] MEDS: CITALOPRAM HYDROBROMIDE 20 MG TABLET PO SCH (09:49)
[2020-06-18] MEDS: MINERAL OIL/PET HY-PHL TOPICAL OINTMENT 454 GM JAR TP SCH ×2 (09:49→23:22)
[2020-06-18] MEDS: NEBIVOLOL 10 MG TABLET (FP) PO SCH (09:50)
[2020-06-18] MEDS: CALCIUM ACETATE/AL SULFATE TOP 1.9 GM/PACKET PACKET TP SCH (09:50)
[2020-06-18] MEDS: BACLOFEN 10 MG TABLET (FP) PO SCH ×4 (09:51→21:18)
[2020-06-18] MEDS: WARFARIN NA 5 MG TABLET PO SCH ×2 (17:30→18:49)
[2020-06-18] MEDS ORDERED: WARFARIN NA 1 MG TABLET PO ONE (18:00)
[2020-06-19 09:04] LABS: INR 1.75 (0.83-1.09); PROTHROMBIN TIME (PATIENT) 21.2 SEC (9.7-13.0)
[2020-06-19] MEDS ORDERED: diazePAM 2 MG TABLET PO SCH ×2 (10:00→22:00)
[2020-06-19] MEDS ORDERED: PT OWN MED DRAWER 7, Y5N ONE (11:04)
[2020-06-19] MEDS: CITALOPRAM HYDROBROMIDE 20 MG TABLET PO SCH (11:15)
[2020-06-19] MEDS: BACLOFEN 10 MG TABLET (FP) PO SCH ×4 (11:17→21:17)
[2020-06-19] MEDS: LACTOBACILLUS ACIDOPHILUS 1 TABLET PO SCH ×2 (11:18→21:17)
[2020-06-19] MEDS: TAMSULOSIN HCL 0.4 MG CAP PO SCH (11:19)
[2020-06-19] MEDS: NEBIVOLOL 10 MG TABLET (FP) PO SCH (11:20)
[2020-06-19] MEDS: SULFAMETHOXAZOLE/TRIMETHOPRIM 800MG/160MG D.S. TABLET PO SCH ×2 (11:20→21:17)
[2020-06-19] MEDS: oxyCODONE HCL 5 MG TABLET PO PRN ×2 (11:42→21:18)
[2020-06-19] MEDS: CALCIUM ACETATE/AL SULFATE TOP 1.9 GM/PACKET PACKET TP SCH (15:39)
[2020-06-19] MEDS: MINERAL OIL/PET HY-PHL TOPICAL OINTMENT 454 GM JAR TP SCH ×2 (15:40→21:17)
[2020-06-19] MEDS ORDERED: WARFARIN NA 5 MG TABLET PO SCH (15:52)
[2020-06-19] MEDS: ACETAMINOPHEN 325 MG TABLET (FP) PO PRN (15:58)
[2020-06-19] MEDS: WARFARIN NA 3 MG TABLET PO SCH (18:39)
[2020-06-20] MEDS: oxyCODONE HCL 5 MG TABLET PO PRN (03:27)
[2020-06-20] MEDS ORDERED: PT OWN MED DRAWER 7, Y5N ONE (09:47)
[2020-06-20] MEDS: NEBIVOLOL 10 MG TABLET (FP) PO SCH (09:49)
[2020-06-20] MEDS: TAMSULOSIN HCL 0.4 MG CAP PO SCH (09:49)
[2020-06-20] MEDS: LACTOBACILLUS ACIDOPHILUS 1 TABLET PO SCH (09:49)
[2020-06-20] MEDS: CITALOPRAM HYDROBROMIDE 20 MG TABLET PO SCH (09:49)
[2020-06-20] MEDS: SULFAMETHOXAZOLE/TRIMETHOPRIM 800MG/160MG D.S. TABLET PO SCH (09:49)
[2020-06-20] MEDS: BACLOFEN 10 MG TABLET (FP) PO SCH ×3 (09:50→17:41)
[2020-06-20] MEDS: CALCIUM ACETATE/AL SULFATE TOP 1.9 GM/PACKET PACKET TP SCH (09:50)
[2020-06-20] MEDS: MINERAL OIL/PET HY-PHL TOPICAL OINTMENT 454 GM JAR TP SCH (09:51)
[2020-06-20] MEDS: ACETAMINOPHEN 325 MG TABLET (FP) PO PRN (09:56)
[2020-06-20 14:44] LABS: INR 2.12 (0.83-1.09); PROTHROMBIN TIME (PATIENT) 25.1 SEC (9.7-13.0)
[2020-06-20 15:48] VITALS: BP 129/56; PULSE 93; TEMP 98.5
[2020-06-20] MEDS: WARFARIN NA 3 MG TABLET PO SCH (17:41)
== END 2020-06-20 18:47 | DRG 871 ==
LOC: JER 19:43 → JERBED 23:29 → J4W 06-12 08:14 → J8W 06-14 11:55
PROVIDERS: ADMIT Internal Medicine; ATTEND Internal Medicine
DX: A41.59 Other Gram-negative sepsis (principal); G93.41 Metabolic encephalopathy; D68.51 Activated protein C resistance; I45.2 Bifascicular block; I24.8 Other forms of acute ischemic heart disease; M62.82 Rhabdomyolysis; L03.116 Cellulitis of left lower limb; L03.115 Cellulitis of right lower limb; L97.818 Non-pressure chronic ulcer of other part of right lower leg with other specified severity; D68.59 Other primary thrombophilia; I10 Essential (primary) hypertension; G35 Multiple sclerosis; M48.02 Spinal stenosis, cervical region; S00.83XA Contusion of other part of head, initial encounter; E78.00 Pure hypercholesterolemia, unspecified; R50.9 Fever, unspecified; I45.10 Unspecified right bundle-branch block; R94.5 Abnormal results of liver function studies; R00.0 Tachycardia, unspecified; R29.6 Repeated falls; K40.90 Unilateral inguinal hernia, without obstruction or gangrene, not specified as recurrent; L89.102 Pressure ulcer of unspecified part of back, stage 2; M43.12 Spondylolisthesis, cervical region; M25.80 Other specified joint disorders, unspecified joint; M50.31 Other cervical disc degeneration, high cervical region; M50.321 Other cervical disc degeneration at C4-C5 level; M50.322 Other cervical disc degeneration at C5-C6 level; M50.323 Other cervical disc degeneration at C6-C7 level; Z86.711 Personal history of pulmonary embolism; Z86.718 Personal history of other venous thrombosis and embolism; W18.39XA Other fall on same level, initial encounter; Y92.89 Other specified places as the place of occurrence of the external cause
CPT/HCPCS: 36415; 70450-TC; 70551-TC; 71045-TC-FY; 71250-TC; 72125-TC; 72141-TC; 76705-TC; 80048; 80053; 81003; 82550; 82553; 82803; 83605; 83735; 84100; 84484; 85025; 85027; 85610; 85730; 87040; 87086; 87186; 93005; 93010; 93306-TC; 97116-GP; 97162-GP; 99285-25; C9803; J0131; J0475; U0003